=== PATIENT | male | born 1995 | race Caucasian/White ===

== ENCOUNTER 2016-12-08 17:48 | Emergency (ER) | payer SELFPAY | END 2016-12-08 18:53 | disposition home or self-care (01) | LOC: ER1 17:48 | DX: J06.9 Acute upper respiratory infection, unspecified (principal); F17.210 Nicotine dependence, cigarettes, uncomplicated | CPT/HCPCS: 87081; 87880; 99283 ==

== ENCOUNTER 2016-12-15 10:06 | Emergency (ER) | payer OTHER | END 2016-12-15 12:50 | disposition home or self-care (01) | LOC: ER1 10:06 | DX: S09.90XA Unspecified injury of head, initial encounter (principal); F17.210 Nicotine dependence, cigarettes, uncomplicated; Z88.1 Allergy status to other antibiotic agents; W22.8XXA Striking against or struck by other objects, initial encounter | CPT/HCPCS: 70450; 70486; 99283 ==

== ENCOUNTER → 2016-12-28 | Outpatient (CLI) | payer OTHER | LOC: KOH-I 09:30 | DX: S04.011D Injury of optic nerve, right eye, subsequent encounter (principal) | CPT/HCPCS: 70480 ==